=== PATIENT | male | born 1980 | race African-American/Black ===

== ENCOUNTER 2018-04-08 13:08 | Emergency (ER) | payer SELFPAY ==
[2018-04-08] MEDS: AZITHROMYCIN 250 MG TABLET. PO (14:58)
[2018-04-08] MEDS: cefTRIAXone IM 250 MG VIAL IM (15:00)
[2018-04-08 15:08] LABS: BILIRUBIN,URINE NEGATIVE (NEG); CLARITY,URINE CLEAR; COLOR,URINE YELLOW; GLUCOSE,URINE NEGATIVE (NEG); NITRITE,URINE NEGATIVE (NEG); PROTEIN,URINE 30 mg/dL (NEG-TRACE); UROBILINOGEN,URINE 0.2 mg/dL (0.2 mg/dL)
[2018-04-08 15:30] LABS: BACTERIA,URINE 0 /HPF (0-FEW); WBC,URINE 20-40 /HPF (0-4)
== END 2018-04-08 15:22 | disposition home or self-care (01) ==
LOC: ER 13:08
DX: A64 Unspecified sexually transmitted disease (principal)
CPT/HCPCS: 81001; 87491; 87591; 96372; 99284; J0696; Q0144

== ENCOUNTER 2018-12-01 11:42 | Emergency (ER) | payer SELFPAY ==
[~2018-12-01] VITALS: Ht 188 cm; Wt 99.8 kg
[~2018-12-01 11:42] MED LIST: METR-34 PO
[2018-12-01] MEDS ORDERED: DILT240C2 PO (12:50)
--- NOTE | 2018-12-01 12:50 | PHYS DOC ---
Past Medical History Past Medical History: Hypertension Alcohol Use: Occasionally Drug Use: Other Social History Narrative: "x pills and i dont know what other drugs they mix with it." Adult General Chief Complaint Chief Complaint: DIARRHEA HPI HPI 38-year-old -[place] male presents with a couple of problems. First, he is a known hypertensive patient has not taken medicine in years. He does not follow with primary care physicians. He comes in today worried that his blood pressure is high. He denies any headache or lateralizing neurologic weakness. He denies any chest pain shortness of breath or dyspnea on exertion. He readily admits that he does not follow any strict low-salt or healthy diet. Next, he states he ate a calzone last night and developed diarrhea. He denies any fever chills or sweats. He denies any hematochezia. He states he is having continued abdominal cramping.[] Review of Systems Review of Systems Constitutional: Denies fever or chills [] Eyes: Denies change in visual acuity, redness, or eye pain [] HENT: Denies nasal congestion or sore throat [] Respiratory: Denies cough or shortness of breath [] Cardiovascular: No additional information not addressed in HPI [] GI: Per history of present illness[] : Denies dysuria or hematuria [] Musculoskeletal: Denies back pain or joint pain [] Integument: Denies rash or skin lesions [] Neurologic: Denies headache, focal weakness or sensory changes [] Endocrine: Denies polyuria or polydipsia [] All other systems were reviewed and found to be within normal limits, except as documented in this note. Allergies Allergies Allergies Coded Allergies Type Severity Reaction Last Updated Verified No Known Drug Allergies 04/08/18 No Physical Exam Physical Exam Constitutional: Well developed, well nourished, no acute distress, non-toxic appearance. [] HENT: Normocephalic, atraumatic, bilateral external ears normal, oropharynx moist, no oral exudates, nose normal. [] Eyes: PERRLA, EOMI, conjunctiva normal, no discharge. [] Neck: Normal range of motion, no tenderness, supple, no stridor. [] Cardiovascular:Heart rate regular rhythm, no murmur [] Lungs & Thorax: Bilateral breath sounds clear to auscultation [] Abdomen: Bowel sounds normal, soft, no tenderness, no masses, no pulsatile masses. [] Skin: Warm, dry, no erythema, no rash. [] Back: No tenderness, no CVA tenderness. [] Extremities: No tenderness, no cyanosis, no clubbing, ROM intact, no edema. [] Neurologic: Alert and oriented X 3, normal motor function, normal sensory function, no focal deficits noted. [] Psychologic: Affect normal, judgement normal, mood normal. [] Current Patient Data Vital Signs Vital Signs Date Time Temp Pulse Resp B/P (MAP) Pulse Ox O2 Delivery O2 Flow Rate FiO2 12/01/18 11:50 98.3 104 16 184/118 (140) 97 Room Air 98.3 EKG EKG [] Radiology/Procedures Radiology/Procedures [] Course & Med Decision Making Course & Med Decision Making Pertinent Labs and Imaging studies reviewed. (See chart for details) [ED course: Evaluation reveals a 38-year-old male with hypertension. He needs to be on blood pressure medication. I will go ahead and start him on a calcium channel mireya as an outpatient. I'll give him some medicine for his diarrhea here but I encouraged him to increase his fluid intake at home.] Dragon Disclaimer Dragon Disclaimer This electronic medical record was generated, in whole or in part, using a voice recognition dictation system. Departure Departure Impression: Primary Impression: Essential hypertension Additional Impression: Diarrhea Disposition: ADMITTED INPATIENT Condition: STABLE Referrals: NO PCP (PCP) Patient Instructions: Diarrhea, Diet - 1.5 Gram Low Sodium, Diet for Diarrhea, Adult, Hypertension Additional Instructions: Take medication as directed. Return emergency department with any new or concerning symptoms. Scripts Diltiazem Hcl (CARDIZEM CD) 240 Mg Cap.er.24h 1 CAP PO DAILY, #90 CAP 3 Refills Prov: JA LEWIS DO 12/01/18 Problem Qualifiers Additional Impression: Diarrhea Diarrhea type: unspecified type Qualified Codes: R19.7 - Diarrhea, unspecified JA LEWIS DO Dec 01, 2018 12:50
[2018-12-01] MEDS ORDERED: DIPHENOXYLATE/ATROPINE TABLET. PO ONE (13:00)
[2018-12-01 13:10] VITALS: BP 190/116
== END 2018-12-01 13:12 | disposition home or self-care (01) ==
LOC: ER 11:42
DX: I10 Essential (primary) hypertension (principal); R19.7 Diarrhea, unspecified; R10.9 Unspecified abdominal pain
CPT/HCPCS: 99283